=== PATIENT | male | born 1995 | race Caucasian/White ===

== ENCOUNTER 2018-05-17 13:34 | Emergency (ER) | payer SELFPAY ==
[~2018-05-17] VITALS: Ht 180.3 cm; Wt 108.9 kg
[2018-05-17] MEDS ORDERED: Keflex500 MG PO (14:54)
== END 2018-05-17 15:02 | disposition home or self-care (01) ==
LOC: ER 13:34
DX: L03.011 Cellulitis of right finger (principal); R03.0 Elevated blood-pressure reading, without diagnosis of hypertension; F17.200 Nicotine dependence, unspecified, uncomplicated
CPT/HCPCS: 99283

== ENCOUNTER 2024-12-31 05:59 | Observation (INO) | payer OTHER ==
[2024-12-31] VITALS (12 sets, daily range): BP systolic 106–153; BP diastolic 54–88
[~2024-12-31] VITALS: Ht 180.3 cm; Wt 114.5 kg
[~2024-12-31 05:59] MED LIST: IBUP800 PO; Keflex500 MG PO
[2024-12-31] MEDS ORDERED: Ketorolac Tromethamine 15mg Vial IV ONE (06:55)
[2024-12-31] MEDS ORDERED: NS 1,000 ML IV SCH ×2 (06:55→19:45)
[2024-12-31] MEDS ORDERED: Ondansetron HCl 2 MG / ML 2ML Vial IV ONE (06:55)
[2024-12-31 07:30] LABS: BASOPHILS ABSOLUTE AUTO 0.05 K/mm3 (0.00-0.23); BASOPHILS PERCENT AUTO 0 % (0-2); EOSINOPHILS ABSOLUTE AUTO 0.01 K/mm3 (0.00-0.68); EOSINOPHILS PERCENT AUTO 0 % (0-6); Hematocrit 41.4 % (37.0-53.0); Hemoglobin 14.0 g/dL (13.5-17.5); IMMATURE GRAN ABSOLUTE AUTO 0.04 K/mm3 (0.00-0.10); IMMATURE GRAN PERCENT AUTO 0 % (0-1); LYMPHOCYTES ABSOLUTE AUTO 1.09 K/mm3 (0.84-5.20); LYMPHOCYTES PERCENT AUTO 8 % (21-46); MONOCYTES ABSOLUTE AUTO 0.29 K/mm3 (0.16-1.47); MONOCYTES PERCENT AUTO 2 % (4-13); Mean Corpuscular HGB Conc 33.8 g/dL (31.5-36.5); Mean Corpuscular Volume 84 fL (80-100); NEUTROPHILS ABSOLUTE AUTO 12.53 K/mm3 (1.96-9.15); NEUTROPHILS PERCENT AUTO 89 % (41-73); NRBC ABSOLUTE 0.00 K/mm3 (0.00-0.02); NRBC Auto 0.0 /100 WBC (0.0-0.2); Platelet Count 259 K/mm3 (150-400); RDW Coefficient Variation 13.2 % (11.7-14.2); RDW Standard Deviation 40.9 fL (35.1-46.3)
[2024-12-31 07:50] LABS: Alanine Aminotransfer (ALT/SGP 33.0 U/L (12-78); Albumin, Blood 4.1 g/dL (3.4-5.0); Albumin/Globulin Ratio 1.1 (0.8-1.8); Anion Gap 9.0 mmol/L (3-11); Aspartate Aminotrans (AST/SGOT 20.0 U/L (12-37); Bilirubin, Total 0.7 mg/dL (0.1-1.0); Blood Urea Nitrogen 17.0 mg/dL (8-24); CO2, Blood 26.0 mmol/L (21-32); Calcium, Blood 9.2 mg/dL (8.5-10.1); Chloride, Blood 104.0 mmol/L (98-108); Creatinine, Blood 0.96 mg/dL (0.60-1.20); Globulin, Blood 3.8 g/dL (2.2-4.0); Glucose, Blood 174.0 mg/dL (70-99); Potassium, Blood 3.8 mmol/L (3.5-5.5); Sodium, Blood 135.0 mmol/L (136-145); Total Protein, Blood 7.9 g/dL (6.4-8.2)
[2024-12-31] MEDS ORDERED: Piperacillin/Tazobactam Sod 3.375 GM in NS 100 ML IV ONE (09:15)
[2024-12-31] MEDS ORDERED: Morphine Sulfate 4 MG/1 ML Injection IV PRN (09:20)
[2024-12-31] MEDS ORDERED: Albuterol 2.5 MG/3 ML VIAL INH PRN (12:15)
[2024-12-31] MEDS ORDERED: Ondansetron HCl 2 MG / ML 2ML Vial IV PRN ×2 (12:15→19:45)
[2024-12-31] MEDS ORDERED: Prochlorperazine Edisylate 10 mg Vial IV PRN (12:15)
[2024-12-31] MEDS ORDERED: FentaNYL Citrate 50 MCG/ML 2 ML Injection IV PRN ×2 (12:20)
[2024-12-31] MEDS ORDERED: HYDROmorphone HCl/Pf 1MG SYR IV PRN (12:20)
[2024-12-31] MEDS ORDERED: Midazolam HCl 1MG / ML 2ML Vial IV PRN (12:20)
[2024-12-31] MEDS ORDERED: Bupivacaine 0.5% HCl 5 MG/ML 30MLVIAL ONE (16:21)
--- NOTE | 2024-12-31 17:42 | NUR ---
PATIENT IS ALERT AND ORIENTED AND COOPERATIVE WITH CARE. PLAN IS FOR SURGERY THIS EVENING WITH DR. RAMON. PATIENT STATES HIS PAIN IS 5/10, MEDICATED PER EMAR. PATIENT HAS BEEN ABLE TO REST SINCE ARRIVING FROM THE ER. HIS DAUGHTER WAS AT THE BEDSIDE EARLIER. IND IN THE ROOM. ON RA. IV TO THE LAC. NPO. WILL CONTINUE TO MONITOR
[2024-12-31] MEDS ORDERED: Piperacillin/Tazobactam Sod 4.5 GM in NS 100 ML IV ONE (18:35)
[2024-12-31] MEDS ORDERED: Piperacillin/Tazobactam Sod 3.375 GM ONE (18:42)
[2024-12-31] MEDS ORDERED: Midazolam HCl 1MG / ML 2ML Vial ONE (18:44)
--- NOTE | 2024-12-31 18:48 | NUR ---
PT BROUGHT TO PACU VIA GEOVANYRTAMMY FROM [facility] 216 FOR PREOP CARE AT 1840. PLEASANT BUT NERVOUS. STATES "FIRST SURGERY". REASSURED HIM WE'LL TAKE GOOD CARE & HE'S IN SAFE EXPERIENCED HANDS. APPEARS TO CALM DOWN. AFEBRILE/HR SINUS RADHA 44. SURGICAL PACK COMPLETE. SURGICAL HAT/PAS SLEEVES/BP CUFF IN PLACE. LR AT TKO. WARM BLANKET PLACED. WILL CONTINUE TO MONITOR VS DURING PREOP CARE.
[2024-12-31] MEDS ORDERED: Ondansetron HCl 2 MG / ML 2ML Vial ONE ×2 (18:51→18:58)
[2024-12-31] MEDS ORDERED: FentaNYL Citrate 50 MCG/ML 2 ML Injection ONE ×2 (18:51→19:31)
[2024-12-31] MEDS ORDERED: Rocuronium Bromide 10 MG/ML 5ML Injection IV ONE (18:51)
[2024-12-31] MEDS ORDERED: Dexamethasone Sod Phos 10 MG/ML 1ML VIAL ONE ×2 (18:51→18:58)
--- NOTE | 2024-12-31 18:54 | NUR ---
PT OR 3 VIA MICHELLE IN STABLE CONDITION A5T 1850.
[2024-12-31] MEDS ORDERED: Sugammadex Sodium 200 MG/2ML SDV (100 MG/ML) ONE (19:02)
[2024-12-31] MEDS ORDERED: Ketorolac Tromethamine 30mg Vial ONE (19:27)
[2024-12-31] MEDS ORDERED: Ketorolac Tromethamine 30mg Vial IV PRN (20:05)
--- NOTE | 2024-12-31 20:10 | NUR ---
TOOK REPORT ON PT COMING BACK FROM PACU FROM POWER SCREWDRIVER OPERATOR DAVE. ALL MEDICATIONS AND PT VS DISCUSSED AND PROCEDURE WITH LAP SITES X [address]
--- NOTE | 2024-12-31 20:28 | NUR ---
PT ARRIVED ON UNIT FROM PACU @ 2019 ON AND TRANSFERRED WITH SBA TO BED W/O ISSUE. 3 LAP SITES VERIFIED WITH SECOND RN ARE C/D/I.
[2025-01-01] MEDS ORDERED: Piperacillin/Tazobactam Sod 3.375 GM in NS 100 ML IV SCH
[2025-01-01 03:40] VITALS: BP 130/76
--- NOTE | 2025-01-01 04:01 | NUR ---
SHIFT SUMMARY NOC PT A/O X 4. PLEASANT AND COOPERATIVE WITH CARE. POST OP VSS, AND ON Q4H POST OP VS NOW. PT HAS LAPROSCOPIC APPENDECTOMY YESTERDAY AND HAS 3 LAP SITES ON ABD WITH STERI STRIPS IN PLACE THAT ARE C/D/I, WITH NO STRIKING NOTED. PT REPORTS THAT PAIN IS VERY MINIMAL AFTER REMOVAL. PT HAS BEEN TOLERATING REGULAR DIET W/O ISSUE AFTER PROCEDURE. INFUSION OF NS @ 100 ML/HR AND Q6H IV ABX GIVEN PER EMAR. PT HAD NOT VOIDED SINCE BEFORE PROCEDURE WHICH WAS @ 1906 YESTERDAY AND BLADDER SCANNED PER PROTOCOL AND FOUND TO BE RETAINING 479 ML, PT WAS ABLE TO VOID AFTER AND VOIDED 475 ML. PT CURRENTLY RESTING WITH BED IN LOWEST POSITION, AND CALL LIGHT WITHIN REACH.
[2025-01-01 07:16] VITALS: BP 120/77
[2025-01-01] MEDS ORDERED: Enoxaparin 40 MG/0.4 ML SYR SC SCH (09:00)
--- NOTE | 2025-01-01 12:25 | NUR ---
discharge all instructions gone over with patient. pod 1 lap appy. pt reports good pain control, denies nausea or vomiting. tolerating diet well. all belongings with patient, elected to ambulate out. iv removed wnl.
== END 2025-01-01 12:28 | disposition home or self-care (01) ==
LOC: ER 05:59 → SURS 06:00
PROVIDERS: Emergency Medicine; ADMIT Surgery
PROC: 0DTJ4ZZ Resection of Appendix, Percutaneous Endoscopic Approach (ICD-10-PCS; principal; 2024-12-31 17:00)
DX: K35.80 Unspecified acute appendicitis (principal)
CPT/HCPCS: 74177; 80053; 85025; 88304; 93005; 93010; 96361; 96365-59; 96375; 99285-25; G0378; J1100; J1650; J1885; J2250; J2270; J2405; J2543; J2704; J3010; J7030; J7120; Q9967